=== PATIENT | male | born 2000 | race American Indian/Alaskan Native ===

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

== ENCOUNTER 2021-02-13 22:26 | Emergency (ER) | payer MEDICAID ==
[2021-02-13] MEDS ORDERED: Sodium Chloride 0.9% 1,000 ML IV ONE (23:16)
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
[2021-02-13 23:50] LABS: ANION GAP 18.8 mEq/L (7-13); CHLORIDE,CL 104 mmol/L (98-107); SODIUM,NA 141 mmol/L (136-145)
[2021-02-13 23:54] LABS: AMPHETAMINES,URINE NEGATIVE (NEGATIVE); BARBITURATES,URINE NEGATIVE (NEGATIVE); BENZODIAZEPINE,URINE NEGATIVE (NEGATIVE); MDMA (ECSTASY), URINE NEGATIVE (NEGATIVE); METHADONE,URINE NEGATIVE (NEGATIVE); METHAMPHETAMINES,URINE NEGATIVE (NEGATIVE); OPIATES,URINE NEGATIVE (NEGATIVE); PHENCYCLIDINE,URINE NEGATIVE (NEGATIVE); TCA,URINE NEGATIVE (NEGATIVE)
[2021-02-13 23:55] LABS: OXYCODONE,URINE NEGATIVE (NEGATIVE)
[2021-02-14 00:41] VITALS: BP 110/62; PULSE 80
== END 2021-02-14 02:17 | disposition home or self-care (01) ==
LOC: DL.ED 22:26
DX: R45.851 Suicidal ideations (principal); F12.10 Cannabis abuse, uncomplicated
CPT/HCPCS: 36415; 80053; 80305; 80307; 81003; 85025; 99284; J7030

== ENCOUNTER 2021-05-04 14:54 | Emergency (ER) | payer MEDICAID ==
[2021-05-04 16:21] VITALS: BP 127/81; PULSE 90
[2021-05-04] MEDS ORDERED: Mupirocin Oint 22 GM Tube TOP ONE (16:48)
[2021-05-04] MEDS ORDERED: Cephalexin 500 MG Cap PO ONE (16:48)
== END 2021-05-04 17:30 | disposition home or self-care (01) ==
LOC: DL.ED 14:54
DX: L89.310 Pressure ulcer of right buttock, unstageable (principal)
CPT/HCPCS: 99282; A9270

== ENCOUNTER 2021-06-27 15:54 | Emergency (ER) | payer MEDICAID, OTHER ==
[2021-06-27] MEDS ORDERED: Sodium Chloride 0.9% 10 ML Syringe FLUSH PRN (16:05)
[2021-06-27 17:02] LABS: ANION GAP 14.8 mEq/L (7-13); CHLORIDE,CL 103 mmol/L (98-107); SODIUM,NA 139 mmol/L (136-145)
[2021-06-27] MEDS ORDERED: cefTRIAXone 1 GM in Sodium Chloride 0.9% 50 ML IV ONE (17:35)
[2021-06-27 18:27] VITALS: BP 111/68; PULSE 98
== END 2021-06-27 18:22 | disposition home or self-care (01) ==
LOC: DL.ED 15:54
DX: N39.0 Urinary tract infection, site not specified (principal)
CPT/HCPCS: 36415; 80053; 81001; 83605; 85025; 87040; 87086; 87088; 87186; 96365; 99283-25; 99284; J0696; J3490

== ENCOUNTER 2022-07-12 13:17 | Emergency (ER) | payer MEDICAID ==
[2022-07-12 13:36] VITALS: BP 120/67; PULSE 90
== END 2022-07-12 15:21 | disposition home or self-care (01) ==
LOC: DL.ED 13:17
DX: T83.511A Infection and inflammatory reaction due to indwelling urethral catheter, initial encounter (principal); B37.41 Candidal cystitis and urethritis; N31.9 Neuromuscular dysfunction of bladder, unspecified
CPT/HCPCS: 81001; 99283

== ENCOUNTER 2022-09-08 21:52 | Emergency (ER) | payer SELFPAY ==
[2022-09-08] MEDS ORDERED: Sodium Chloride 0.9% 10 ML Syringe FLUSH PRN (22:14)
[2022-09-08] MEDS ORDERED: Sodium Chloride 0.9% 1,000 ML IV ONE (22:15)
[2022-09-08] MEDS ORDERED: Ondansetron 4 MG/2 ML SDV IVPUSH ONE (22:15)
[2022-09-08 22:29] LABS: APPEARANCE,URINE CLEAR (CLEAR); BILIRUBIN,URINE NEGATIVE (NEGATIVE); COLOR,URINE YELLOW (YELLOW); GLUCOSE,URINE NEGATIVE (NEGATIVE); KETONES,URINE TRACE (NEGATIVE); LEUKOCYTE ESTERASE,URINE MODERATE (NEGATIVE); NITRITE,URINE POSITIVE (NEGATIVE); OCCULT BLOOD,URINE NEGATIVE (NEGATIVE); PH,URINE >= 9.0 (5.0-9.0); PROTEIN,URINE 30 (NEGATIVE)
[2022-09-08 22:31] LABS: AMPHETAMINES,URINE NEGATIVE (NEGATIVE); BARBITURATES,URINE NEGATIVE (NEGATIVE); BENZODIAZEPINE,URINE NEGATIVE (NEGATIVE); MDMA (ECSTASY), URINE NEGATIVE (NEGATIVE); METHADONE,URINE NEGATIVE (NEGATIVE); METHAMPHETAMINES,URINE NEGATIVE (NEGATIVE); OPIATES,URINE NEGATIVE (NEGATIVE); OXYCODONE,URINE NEGATIVE (NEGATIVE); PHENCYCLIDINE,URINE NEGATIVE (NEGATIVE); TCA,URINE NEGATIVE (NEGATIVE)
[2022-09-08] MEDS ORDERED: Ertapenem 1 GM Vial IV ONE (22:46)
[2022-09-08 23:06] LABS: AMORPHOUS SEDIMENT,URINE FEW /HPF (NOT SEEN); BACTERIA,URINE MANY /HPF (0-FEW/HPF); EPITHELIAL CELLS,URINE FEW /HPF (NOT SEEN); MUCUS,URINE FEW /LPF (NOT SEEN); RBC,URINE 0-5 /HPF (0-5); WBC,URINE 50-75 /HPF (0-5/HPF)
[2022-09-08 23:14] VITALS: BP 94/41; PULSE 67
== END 2022-09-08 23:15 | disposition home or self-care (01) ==
LOC: DL.ED 21:52
DX: N39.0 Urinary tract infection, site not specified (principal)
CPT/HCPCS: 80305; 81001; 87086; 87088; 87186; 96374; 99284; J1335; 99283; J3490

== ENCOUNTER 2022-09-30 15:05 | Emergency (ER) | payer SELFPAY ==
[2022-09-30 15:42] VITALS: BP 103/68; PULSE 90
[2022-09-30 16:08] LABS: APPEARANCE,URINE SLIGHTLY CLOUDY (CLEAR); BILIRUBIN,URINE NEGATIVE (NEGATIVE); COLOR,URINE DARK YELLOW (YELLOW); GLUCOSE,URINE NEGATIVE (NEGATIVE); KETONES,URINE NEGATIVE (NEGATIVE); LEUKOCYTE ESTERASE,URINE TRACE (NEGATIVE); NITRITE,URINE POSITIVE (NEGATIVE); OCCULT BLOOD,URINE NEGATIVE (NEGATIVE); PH,URINE 8.5 (5.0-9.0); PROTEIN,URINE NEGATIVE (NEGATIVE)
[2022-09-30 16:24] LABS: BACTERIA,URINE MANY /HPF (0-FEW/HPF); EPITHELIAL CELLS,URINE RARE /HPF (NOT SEEN); RBC,URINE 0-5 /HPF (0-5)
== END 2022-09-30 16:55 | disposition home or self-care (01) ==
LOC: DL.ED 15:05
DX: N39.0 Urinary tract infection, site not specified (principal); Z46.6 Encounter for fitting and adjustment of urinary device
CPT/HCPCS: 81001; 87086; 87088; 87186; 99284

== ENCOUNTER 2022-12-31 10:29 | Emergency (ER) | payer MEDICAID ==
[2022-12-31 10:55] VITALS: BP 109/49; PULSE 68
[2022-12-31 11:24] LABS: APPEARANCE,URINE SLIGHTLY CLOUDY (CLEAR); BILIRUBIN,URINE NEGATIVE (NEGATIVE); COLOR,URINE YELLOW (YELLOW); GLUCOSE,URINE NEGATIVE (NEGATIVE); KETONES,URINE NEGATIVE (NEGATIVE); LEUKOCYTE ESTERASE,URINE MODERATE (NEGATIVE); NITRITE,URINE NEGATIVE (NEGATIVE); OCCULT BLOOD,URINE TRACE-INTACT (NEGATIVE); PH,URINE 7.5 (5.0-9.0); PROTEIN,URINE NEGATIVE (NEGATIVE); UROBILINOGEN,URINE 0.2 mg/dL (0.2-1.0)
[2022-12-31 11:34] LABS: BACTERIA,URINE FEW /HPF (0-FEW/HPF); EPITHELIAL CELLS,URINE OCCASIONAL /HPF (NOT SEEN); RBC,URINE 0-5 /HPF (0-5); WBC,URINE 30-40 /HPF (0-5/HPF)
[2022-12-31] MEDS ORDERED: Take Home: Ciprofloxacin HCl 500 MG, 6 Tab Pack PO ONE (12:22)
== END 2022-12-31 12:38 | disposition home or self-care (01) ==
LOC: DL.ED 10:29
DX: N30.00 Acute cystitis without hematuria (principal)
CPT/HCPCS: 81001; 87086; 87088; 87186; 99283; A9270-GY

== ENCOUNTER 2023-01-24 17:42 | Emergency (ER) | payer MEDICAID ==
[2023-01-24 18:25] VITALS: BP 113/68; PULSE 66
[2023-01-24 18:47] LABS: APPEARANCE,URINE CLEAR (CLEAR); BILIRUBIN,URINE NEGATIVE (NEGATIVE); COLOR,URINE YELLOW (YELLOW); GLUCOSE,URINE NEGATIVE (NEGATIVE); KETONES,URINE NEGATIVE (NEGATIVE); LEUKOCYTE ESTERASE,URINE NEGATIVE (NEGATIVE); NITRITE,URINE NEGATIVE (NEGATIVE); OCCULT BLOOD,URINE NEGATIVE (NEGATIVE); PH,URINE 6.5 (5.0-9.0); PROTEIN,URINE TRACE (NEGATIVE)
[2023-01-24 18:53] LABS: BACTERIA,URINE FEW /HPF (0-FEW/HPF); EPITHELIAL CELLS,URINE RARE /HPF (NOT SEEN); MUCUS,URINE MODERATE /LPF (NOT SEEN); RBC,URINE 0-5 /HPF (0-5)
== END 2023-01-24 18:57 | disposition home or self-care (01) ==
LOC: DL.ED 17:42
DX: N39.0 Urinary tract infection, site not specified (principal)
CPT/HCPCS: 81001; 99283

== ENCOUNTER 2023-11-08 01:31 | Emergency (ER) | payer SELFPAY ==
[2023-11-08 01:45] VITALS: BP 111/91; PULSE 86
[2023-11-08] MEDS ORDERED: Silver Sulfadiazine 1% Crm 400 GM Jar TOP SCH (02:00)
[2023-11-08] MEDS: Silver Sulfadiazine 1% Crm 50 GM Tube TOP ONE (02:01)
== END 2023-11-08 02:23 | disposition home or self-care (01) ==
LOC: DL.ED 01:31
DX: T24.222A Burn of second degree of left knee, initial encounter (principal); X13.1XXA Other contact with steam and other hot vapors, initial encounter
CPT/HCPCS: 16020; 99283; A9270

== ENCOUNTER 2024-06-13 01:42 | Observation (INO) | payer BC, MEDICAID ==
[2024-06-13] MEDS: Acetaminophen 325 MG Tab PO ONE (02:26)
[2024-06-13] MEDS: Sodium Chloride 0.9% 1,000 ML IV ONE ×2 (02:26→04:21)
[2024-06-13 02:31] LABS: BASOPHILS PERCENT AUTO 0.1 % (0.0-1.0); EOSINOPHILS PERCENT AUTO 0.2 % (1.0-3.0); HEMATOCRIT 42.1 % (40.0-54.0); HEMOGLOBIN 14.1 g/dL (14.0-18.0); MEAN CORPUSCULAR HEMOGLOBIN 28.8 pg (27.0-34.0); MEAN CORPUSCULAR HGB CONC 33.5 g/dL (33.0-35.0); MEAN CORPUSCULAR VOLUME 85.9 fL (80-100); MONOCYTES PERCENT AUTO 5.9 % (2-8); NEUTROPHILS PERCENT AUTO 89.8 % (42.2-75.2); PLATELET COUNT,PLT 178 10^3/uL (150-450); WHITE BLOOD CELL COUNT,WBC 15.7 10^3/uL (5.0-10.0)
[2024-06-13 02:53] LABS: A/G RATIO 1.1; BILIRUBIN TOTAL 0.7 mg/dL (0.2-1.0); BUN/CREATININE RATIO 13.2 (No establ ref range); CALCIUM 9.1 mg/dL (8.5-10.1); CREATININE 1.06 mg/dL (0.70-1.30); EST CRCL DRUG DOSING (CG) 101.69 mL/min; MAGNESIUM 1.9 mg/dL (1.8-2.4); PROTEIN TOTAL,TP 7.8 g/dL (6.4-8.2)
[2024-06-13 02:56] LABS: ANION GAP 12.4 mEq/L (7-13); LACTIC ACID 1.5 mmol/L (0.4-2.0); POTASSIUM,K 3.4 mmol/L (3.5-5.1)
[2024-06-13] MEDS: Potassium Chloride 10 MEQ Tab.ER PO ONE (03:15)
[2024-06-13] MEDS: Ciprofloxacin in D5W 400 MG in Premix Bag 1 BAG IV ONE (03:15)
[2024-06-13 03:38] LABS: APPEARANCE,URINE SLIGHTLY CLOUDY (CLEAR); BILIRUBIN,URINE NEGATIVE (NEGATIVE); COLOR,URINE YELLOW (YELLOW); GLUCOSE,URINE NEGATIVE (NEGATIVE); KETONES,URINE NEGATIVE (NEGATIVE); LEUKOCYTE ESTERASE,URINE TRACE (NEGATIVE); NITRITE,URINE POSITIVE (NEGATIVE); OCCULT BLOOD,URINE NEGATIVE (NEGATIVE); PROTEIN,URINE NEGATIVE (NEGATIVE)
[2024-06-13 03:57] LABS: BACTERIA,URINE MANY /HPF (0-FEW/HPF); EPITHELIAL CELLS,URINE RARE /HPF (NOT SEEN); MUCUS,URINE FEW /LPF (NOT SEEN); RBC,URINE 0-5 /HPF (0-5); WBC,URINE 30-40 /HPF (0-5/HPF)
[2024-06-13] MEDS ORDERED: Acetaminophen 325 MG Tab PO PRN (10:03)
[2024-06-13] MEDS: Ondansetron 4 MG/2 ML SDV IVPUSH PRN (10:17)
[2024-06-13] MEDS: Docusate Sodium 100 MG Cap PO PRN (10:17)
[2024-06-13] MEDS: Lactated Ringers 1,000 ML IV SCH (10:19)
[2024-06-13] MEDS: Enoxaparin 40 MG/0.4 ML Syringe SUBCUT SCH (10:22)
[2024-06-13] MEDS: Potassium Chloride 20 MEQ in Premix Bag 1 BAG IV ONE (10:26)
[2024-06-13] MEDS ORDERED: Sodium Chloride 0.9% 1,000 ML IV SCH (10:30)
[2024-06-13] MEDS: cefTRIAXone 2 GM Vial IVPUSH SCH (11:00)
[2024-06-14 06:32] LABS: BASOPHILS PERCENT AUTO 0.2 % (0.0-1.0); EOSINOPHILS PERCENT AUTO 0.8 % (1.0-3.0); HEMOGLOBIN 12.7 g/dL (14.0-18.0); LYMPHOCYTES PERCENT AUTO 13.8 % (20.5-50.1); MEAN CORPUSCULAR HEMOGLOBIN 29.1 pg (27.0-34.0); MEAN CORPUSCULAR HGB CONC 33.4 g/dL (33.0-35.0); MEAN CORPUSCULAR VOLUME 87.2 fL (80-100); MONOCYTES PERCENT AUTO 7.3 % (2-8); NEUTROPHILS PERCENT AUTO 77.9 % (42.2-75.2); PLATELET COUNT,PLT 162 10^3/uL (150-450); RED BLOOD CELL COUNT 4.36 10^6/uL (4.6-6.2)
[2024-06-14 06:46] LABS: ANION GAP 15.9 mEq/L (7-13); CALCIUM 9.1 mg/dL (8.5-10.1); CREATININE 0.85 mg/dL (0.70-1.30); EST CRCL DRUG DOSING (CG) 124.19 mL/min; MAGNESIUM 1.8 mg/dL (1.8-2.4); POTASSIUM,K 3.9 mmol/L (3.5-5.1)
[2024-06-14 11:25] VITALS: BP 125/64; PULSE 60
[2024-06-14] MEDS: Cefdinir 250 MG/5 ML Susp 100 ML Bottle PO ONE (15:53)
== END 2024-06-14 16:35 | disposition home or self-care (01) ==
LOC: DL.ED 01:42 → DL.MS 08:16
PROVIDERS: ADMIT Internal Medicine; ATTEND Internal Medicine
DX: A41.51 Sepsis due to Escherichia coli [E. coli] (principal); N39.0 Urinary tract infection, site not specified; G82.20 Paraplegia, unspecified
CPT/HCPCS: 36415; 51702; 80048; 80053; 81001; 83605; 83735; 85025; 87040; 87086; 87088; 87186; 99223; 99239; A9270; J0696; J0744; J1650; J2405; J3480; J7030; J7120; 99285